=== PATIENT | male | born 1995 | race Two or more races ===

== ENCOUNTER 2017-01-24 15:43 | Emergency (ER) | payer MEDICAID ==
[~2017-01-24] VITALS: Ht 175.3 cm; Wt 92.1 kg
[2017-01-24 16:00] VITALS: BP 129/73
[2017-01-24] MEDS ORDERED: BACITRACIN TOP OINT 1 UD PKG TOP ONE (16:15)
== END 2017-01-24 16:19 | disposition home or self-care (01) ==
LOC: ER 15:43
DX: S91.331A Puncture wound without foreign body, right foot, initial encounter (principal); W52.XXXA Crushed, pushed or stepped on by crowd or human stampede, initial encounter; Y93.89 Activity, other specified; Y99.8 Other external cause status; Y92.096 Garden or yard of other non-institutional residence as the place of occurrence of the external cause